=== PATIENT | male | born 2000 | race Caucasian/White ===

== ENCOUNTER 2020-07-05 11:09 | Outpatient (REF) | payer OTHER, SELFPAY ==
[2020-07-05 12:29] LABS: MANUAL DIFF FLAG NO
[2020-07-05 12:33] LABS: Basophils Percent Auto 0.5 % (0-2); Eosinophils Absolute Auto 0.1 X10*3/uL (0.0-0.4); Eosinophils Percent Auto 1.6 % (0-4); Hematocrit 48.8 % (42-52); Hemoglobin 16.3 g/dl (14.0-18.0); Imm Gran Abs Auto 0.02 X10*3/uL (0.00-0.03); Imm Gran Pct Auto 0.3 % (0.0-0.4); Lymphocytes Absolute Auto 2.2 X10*3/uL (1.2-4.9); Lymphocytes Percent Auto 30.6 % (20-40); Mean Corpuscular HGB Conc 33.4 g/dl (31.0-36.0); Mean Corpuscular Hemoglobin 27.7 pg (27.0-33.0); Mean Corpuscular Volume 82.9 fL (80-98); Mean Platelet Volume 9.8 fL (9.4-12.4); Monocytes Absolute Auto 0.6 X10*3/uL (0.1-1.2); Monocytes Percent Auto 7.7 % (2-11); Neutrophils Absolute Auto 4.3 X10*3/uL (2.0-8.3); Neutrophils Percent Auto 59.3 % (45-73); Platelet Count 275 X10*3/uL (160-400); Red Blood Count 5.89 X10*6/uL (4.60-5.80); Red Cell Distribution Width 12.6 % (11.0-16.0); White Blood Count 7.3 X10*3/uL (4.8-10.8)
[2020-07-05 12:52] LABS: Alanine Aminotransferase 72 U/L (0-40); Albumin Level 4.6 g/dL (3.5-5.0); Alkaline Phosphatase 107 U/L (39-117); Anion Gap 10 (12-20); Aspartate Amino Transferase 31 U/L (5-37); Bilirubin Direct 0.2 mg/dL (0.0-0.5); Bilirubin Total 0.6 mg/dL (0.0-1.0); Blood Urea Nitrogen 9 mg/dL (9-16); Calcium 9.8 mg/dL (8.4-10.2); Carbon Dioxide 30 mmol/L (22-29); Chloride 103 mmol/L (96-108); Cholesterol 199 mg/dL; Estimated Glomerular Filt Rate > 60; Glucose Random 89 mg/dL (60-115); HDL Cholesterol 37 mg/dL; LDL Cholesterol Calculated 117 mg/dl; Potassium 4.3 mmol/L (3.3-5.1); Sodium 139 mmol/L (135-145); Triglycerides 225 mg/dL
[2020-07-06 07:57] LABS: ~HepC Num1 0.04 S/CO (0.00-0.79); ~Hepatitis C Antibody Nonreactive (Nonreactive)
[2020-07-06 08:47] LABS: HBS Num1 0.41 mIU/mL (0-7.99); HBc Num1 0.12 S/CO (0.00-0.79); HBsAGNum1 0.18 S/CO (0.00-0.99); Hepatitis B Core Antibody Nonreactive (Nonreactive); Hepatitis B Surface Antigen Negative (Negative); ~Hepatitis B Surface Antibody NONREACTIVE (Nonreactive)
[2020-07-08 23:06] LABS: TS Negative Control Passed; TS Panel A 0; TS Panel B 0; TS Positive Control Passed; TSpotTB Negative (SeeBelow)
== END 2020-07-05 11:10 | disposition home or self-care (01) ==
LOC: HO.LAB 11:09
PROVIDERS: Visit Provider Physician Assistant Medical
DX: L40.0 Psoriasis vulgaris (principal)
CPT/HCPCS: 36415; 80053; 80061; 80076; 82248; 85025; 86481; 86704; 86705; 86706; 86803; 87340

== ENCOUNTER 2020-10-24 13:35 | Outpatient (REF) | payer OTHER, SELFPAY ==
[2020-10-24 14:36] LABS: MANUAL DIFF FLAG NO
[2020-10-24 14:39] LABS: Basophils Percent Auto 0.6 % (0-2); Eosinophils Absolute Auto 0.1 X10*3/uL (0.0-0.4); Eosinophils Percent Auto 1.8 % (0-4); Hematocrit 50.3 % (42-52); Imm Gran Abs Auto 0.02 X10*3/uL (0.00-0.03); Imm Gran Pct Auto 0.3 % (0.0-0.4); Lymphocytes Absolute Auto 2.8 X10*3/uL (1.2-4.9); Lymphocytes Percent Auto 41.1 % (20-40); Mean Corpuscular HGB Conc 33.8 g/dl (31.0-36.0); Mean Corpuscular Hemoglobin 28.2 pg (27.0-33.0); Mean Corpuscular Volume 83.6 fL (80-98); Mean Platelet Volume 10.6 fL (9.4-12.4); Monocytes Absolute Auto 0.5 X10*3/uL (0.1-1.2); Monocytes Percent Auto 6.7 % (2-11); Neutrophils Absolute Auto 3.4 X10*3/uL (2.0-8.3); Neutrophils Percent Auto 49.5 % (45-73); Platelet Count 271 X10*3/uL (160-400); Red Blood Count 6.02 X10*6/uL (4.60-5.80); Red Cell Distribution Width 12.8 % (11.0-16.0); White Blood Count 6.8 X10*3/uL (4.8-10.8)
[2020-10-24 15:09] LABS: Alanine Aminotransferase 63 U/L (0-40); Albumin Level 4.6 g/dL (3.5-5.0); Alkaline Phosphatase 94 U/L (39-117); Anion Gap 12 (12-20); Aspartate Amino Transferase 31 U/L (5-37); Bilirubin Total 1.1 mg/dL (0.0-1.0); Blood Urea Nitrogen 9 mg/dL (9-16); Calcium 10.1 mg/dL (8.4-10.2); Carbon Dioxide 28 mmol/L (22-29); Chloride 105 mmol/L (96-108); Estimated Glomerular Filt Rate > 60; Glucose Random 87 mg/dL (60-115); Potassium 4.7 mmol/L (3.3-5.1); Sodium 140 mmol/L (135-145); Total Protein 6.9 g/dL (6.5-8.0)
== END 2020-10-24 13:36 | disposition home or self-care (01) ==
LOC: HO.LAB 13:35
PROVIDERS: Visit Provider Physician Assistant Medical
DX: L40.0 Psoriasis vulgaris (principal); Z79.899 Other long term (current) drug therapy
CPT/HCPCS: 36415; 80053; 85025

== ENCOUNTER 2021-05-11 10:23 | Outpatient (REF) | payer OTHER, SELFPAY ==
[2021-05-11 10:42] LABS: MANUAL DIFF FLAG NO
[2021-05-11 11:07] LABS: Basophils Percent Auto 0.5 % (0-2); Eosinophils Absolute Auto 0.2 X10*3/uL (0.0-0.4); Eosinophils Percent Auto 2.1 % (0-4); Hematocrit 48.2 % (42.0-52.0); Hemoglobin 16.4 g/dl (14.0-18.0); Imm Gran Abs Auto 0.02 X10*3/uL (0.00-0.03); Imm Gran Pct Auto 0.3 % (0.0-0.4); Lymphocytes Absolute Auto 2.3 X10*3/uL (1.2-4.9); Lymphocytes Percent Auto 30.1 % (20-40); Mean Corpuscular Hemoglobin 28.6 pg (27.0-33.0); Mean Platelet Volume 9.9 fL (9.4-12.4); Monocytes Absolute Auto 0.6 X10*3/uL (0.1-1.2); Monocytes Percent Auto 7.4 % (2-11); Neutrophils Absolute Auto 4.5 x10*3/uL (2.0-8.3); Neutrophils Percent Auto 59.6 % (45-73); Platelet Count 247 X10*3/uL (160-400); Red Blood Count 5.74 X10*6/uL (4.60-5.80); Red Cell Distribution Width 12.5 % (11.0-16.0); White Blood Count 7.5 X10*3/uL (4.8-10.8)
[2021-05-11 11:26] LABS: Alanine Aminotransferase 50 U/L (0-40); Albumin Level 4.8 g/dL (3.5-5.0); Alkaline Phosphatase 81 U/L (39-117); Anion Gap 13 (12-20); Aspartate Amino Transferase 23 U/L (5-37); Bilirubin Total 0.7 mg/dL (0.0-1.0); Blood Urea Nitrogen 13 mg/dL (9-16); Calcium 10.1 mg/dL (8.4-10.2); Carbon Dioxide 27 mmol/L (22-29); Chloride 105 mmol/L (96-108); Estimated Glomerular Filt Rate > 60; Glucose Random 99 mg/dL (60-115); Potassium 4.6 mmol/L (3.3-5.1); Sodium 140 mmol/L (135-145); Total Protein 7.1 g/dL (6.5-8.0)
== END 2021-05-11 10:24 | disposition home or self-care (01) ==
LOC: HO.LAB 10:23
PROVIDERS: Visit Provider Physician Assistant Medical
DX: L40.0 Psoriasis vulgaris (principal); Z79.899 Other long term (current) drug therapy
CPT/HCPCS: 36415; 80053; 85025

== ENCOUNTER 2021-12-13 10:32 | Outpatient (REF) | payer OTHER, SELFPAY ==
[2021-12-13 10:53] LABS: MANUAL DIFF FLAG NO
[2021-12-13 11:47] LABS: Basophils Percent Auto 0.5 % (0-2); Eosinophils Absolute Auto 0.1 X10*3/uL (0.0-0.4); Eosinophils Percent Auto 1.6 % (0-4); Hemoglobin 16.7 g/dl (14.0-18.0); Imm Gran Abs Auto 0.03 X10*3/uL (0.00-0.03); Imm Gran Pct Auto 0.4 % (0.0-0.4); Lymphocytes Absolute Auto 2.3 X10*3/uL (1.2-4.9); Lymphocytes Percent Auto 30.5 % (20-40); Mean Corpuscular HGB Conc 33.4 g/dl (31.0-36.0); Mean Corpuscular Hemoglobin 27.6 pg (27.0-33.0); Mean Corpuscular Volume 82.5 fL (80.0-98.0); Monocytes Absolute Auto 0.4 X10*3/uL (0.1-1.2); Monocytes Percent Auto 5.6 % (2-11); Neutrophils Absolute Auto 4.6 x10*3/uL (2.0-8.3); Neutrophils Percent Auto 61.4 % (45-73); Platelet Count 270 X10*3/uL (160-400); Red Blood Count 6.06 X10*6/uL (4.60-5.80); Red Cell Distribution Width 12.8 % (11.0-16.0); White Blood Count 7.5 X10*3/uL (4.8-10.8)
[2021-12-13 12:21] LABS: Alanine Aminotransferase 43 U/L (0-40); Albumin Level 4.7 g/dL (3.5-5.0); Alkaline Phosphatase 83 U/L (39-117); Anion Gap 16 (12-20); Aspartate Amino Transferase 25 U/L (5-37); Bilirubin Direct 0.4 mg/dL (0.0-0.5); Blood Urea Nitrogen 17 mg/dL (9-16); Carbon Dioxide 27 mmol/L (22-29); Chloride 102 mmol/L (96-108); Cholesterol 180 mg/dL; Estimated Glomerular Filt Rate > 60; Glucose Random 123 mg/dL (60-115); HDL Cholesterol 43 mg/dL; LDL Cholesterol Calculated 121 mg/dl; Potassium 4.6 mmol/L (3.3-5.1); Sodium 140 mmol/L (135-145); Total Protein 7.1 g/dL (6.5-8.0); Triglycerides 80 mg/dL
[2021-12-15 16:16] LABS: LDL Cholesterol Direct 122 mg/dL (<100)
[2021-12-16 21:32] LABS: TS Negative Control Passed; TS Panel A 0; TS Panel B 0; TS Positive Control Passed; TSpotTB Negative (Negative)
== END 2021-12-13 10:33 | disposition home or self-care (01) ==
LOC: HO.LAB 10:32
PROVIDERS: Visit Provider Physician Assistant Medical
DX: Z11.1 Encounter for screening for respiratory tuberculosis (principal); L40.0 Psoriasis vulgaris; Z79.899 Other long term (current) drug therapy
CPT/HCPCS: 36415; 80048; 80061; 80076; 83721; 85025; 86481

== ENCOUNTER 2022-08-18 10:13 | Emergency (ER) | payer OTHER, SELFPAY ==
[2022-08-18 10:22] VITALS: BP 122/64; PULSE 72; RESP 16; TEMP 36.8; O2SAT 96; BMI 39.3
--- NOTE | 2022-08-18 10:42 | ED.GENADULT ---
HPI - General Adult General Chief complaint: Back Pain/Injury Stated complaint: Back inj Time Seen by Provider: 08/18/22 10:42 Source: patient Mode of arrival: ambulatory Limitations: no limitations History of Present Illness HPI narrative: Patient is a 22 year old assigned male at with a history of chronic back pain presenting to the emergency department today with back pain. Patient states that he has a chronic compression deformity in his back and he has never had treatment for it. Patient states that lately it has hurt more because he does a lot of lifting at work. Patient denies any dizziness, lightheadedness, abdominal pain, nausea, vomiting, fever, chills, blurry vision, double vision, loss of vision, chest pain, difficulty breathing, shortness of breath, night sweats, pain with urination, increased urinary frequency, increased urinary urgency, blood in his urine or stool, syncope or a near syncopal episode, recent trauma or falls, bowel incontinence, bladder incontinence, bowel retention, bladder retention, or any other complaints at this time. Onset (ago): day(s) Location: back Radiation: non-radiation Severity: mild Severity scale (1-10): 3 Quality: dull Pain Consistency: constant Relieving factors: none Exacerbating factors: movement Associated symptoms: denies other symptoms Treatments prior to arrival: none Related Data Previous Rx's Medication Instructions Recorded cyclobenzaprine 5 mg tablet 5 mg PO TID PRN muscle spasm 7 08/18/22 days #21 tabs naproxen 500 mg tablet 500 mg PO BID 7 days #14 tabs 08/18/22 prednisone 20 mg tablet 20 mg PO DAILY 7 days #7 tabs 08/18/22 Allergies Allergy/AdvReac Type Severity Reaction Status Date / Time No Known Allergies Allergy Verified 08/18/22 10:33 Review of Systems Constitutional: Constitutional: Reports no additional constitutional complaints, Denies chills, Denies fever(s) and Denies night sweats Eyes: Eyes: Reports no additional eye complaints, Denies blurry vision, Denies change in vision, Denies diplopia, Denies eye discharge, Denies loss of vision and Denies eye pain ENT: Denies dizziness Cardiovascular: Cardiovascular: Reports no additional cardiovascular complaints, Denies chest pain, Denies lightheadedness, Denies Loss of Consciousness and Denies dyspnea Respiratory: Respiratory: Reports no additional respiratory complaints and Denies dyspnea Gastrointestinal: Gastrointestinal: Reports no additional gastrointestinal complaints, Denies abdominal pain, Denies melena, Denies hematochezia, Denies change in bowel habits and Denies change in stool character Genitourinary: Genitourinary: Reports no additional male genitourinary complaints, Denies hematuria, Denies oliguria, Denies difficulty urinating, Denies dysuria, Denies urinary frequency, Denies urinary hesitancy, Denies urinary incontinence and Denies urinary urgency Musculoskeletal: Musculoskeletal: Reports no additional musculoskeletal complaints, Reports back pain, Denies numbness and Denies tingling Neurologic: Denies dizziness, Denies loss of vision, Denies numbness and Denies tingling Psychiatric: Psychiatric: Reports no additional psychiatric complaints Endocrine: Endocrine: Reports no additional endocrine complaints Hematologic/Lymphatic: Hematologic/Lymphatic: Reports no additional hematologic/lymphatic complaints Allergic/Immunologic: Allergic/Immunologic: Reports no additional allergic/immunologic complaints PMFSH Past Medical History Attestation statement: The following information was validated with the patient. Source: old records reviewed and nursing notes reviewed Physical Exam ED Vital Signs: Vital Signs - 24 hr 08/18/22 10:22 Temperature 98.2 F Pulse Rate 72 Respiratory Rate 16 Blood Pressure 122/64 Pulse Oximetry 96 Oxygen Delivery Method Room Air BMI result Body Mass Index 39.3 Const General: cooperative, no acute distress, alert and awake Nutritional Appearance: well nourished Orientation/consciousness: patient oriented x3 Limitations: no limitations HENMT Head: Yes normal to inspection and Yes atraumatic Ears: hearing grossly normal bilaterally and external ears normal General nose exam: Normal external nose present, no nasal discharge noted and no epistaxis Face and sinus: Yes normal facial exam, No abrasion and No laceration Mouth: Normal oral and palatal mucosa present, no drooling and no muffled voice Eyes General: appearance normal, both eyes and all related structures Periorbital: periorbital findings normal Eyelids: Yes eyelids normal Conjunctivae: conjunctivae normal Pupils: Equal, round and reactive pupils present EOM: EOMs intact bilaterally Neck Neck: Yes normal visual inspection, Yes full ROM and Yes no lymphadenopathy Chest Chest palpation & inspection: normal inspection of the chest Resp Effort & Inspection: normal respiratory effort and able to speak in complete sentences GI Inspection: Yes normal to inspection General: Yes no CVA tenderness Back/Spine/Pelvis Back: no CVA tenderness Cervical Spine: normal cervical lordosis Thoracic/Lumbar Spine: thoracic and lumbar spine normal to inspection Pelvis: no pain with anterior-posterior compression Neuro General: patient oriented x3 and moves all extremities Cranial nerves: Yes Equal, round and reactive pupils present Cognition (Neuro): normal cognition Motor exam (neuro): 5/5 motor strength present throughout Sensory Exam: Normal double simultaneous stimulation for sensation Coordination: [id number] test normal Extrem General: Yes normal to inspection, Yes full ROM and Yes capillary refill normal Psych Appearance: grossly normal Mental Status: mental status grossly normal Affect: normal affect Attitude: cooperative Thought process: Normal thought process present Thought content: Normal thought content present Insight: Good insight present (Psych) Medical Decision Making Medical Decision Making MDM Narrative: Patient is a 22 year old assigned male at with a history of chronic back pain presenting to the emergency department today with persistent back pain. Patient's physical exam was unremarkable. I explained my physical exam findings to the patient. I answered all questions asked by the patient. Patient received PO Prednisone, IM Toradol, and PO Flexeril which he stated helped his symptoms significantly. I stressed the importance of the patient taking his medication as prescribed. 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 I stressed the importance of the patient returning to the emergency department immediately if his symptoms were to worsen or if he were to develop any dizziness, shortness of breath, difficulty breathing, chest pain, blurry vision, loss of vision, nausea, vomiting, abdominal pain, fever, chills, back pain, or any other complaints. Patient verbalized agreement and understanding with this treatment plan and discharge. Differential Diagnosis Differential Diagnoses: The differential diagnosis associated with the presentation includes back pain chronic back pain chronic compression deformity of the spine mechanical back pain Prescription Management I considered prescription management with: Pain Medication (patient was discharged on naproxen) Discharge Plan Discharge Clinical Impression: Back pain Patient Disposition: Home, Self-Care Instructions: Back Pain (ED) Additional Instructions: Follow up with your primary care provider and a desktop publishing specialist. Return to the emergency department immediately if your symptoms worsen or if you develop any dizziness, shortness of breath, difficulty breathing, chest pain, blurry vision, loss of vision, nausea, vomiting, abdominal pain, fever, chills, back pain, or any other complaints. Prescriptions: New cyclobenzaprine 5 mg tablet 5 mg PO TID PRN (Reason: muscle spasm) 7 Days Qty: 21 0RF prednisone 20 mg tablet 20 mg PO DAILY 7 Days Qty: 7 0RF naproxen 500 mg tablet 500 mg PO BID 7 Days Qty: 14 0RF Referrals: [facility] [Provider Group] (Call to establish and follow up with a primary care provider. If you already have a primary care provider, please follow up with them.) [facility] [place] [Provider Group] (Call to establish and follow up with a primary care provider. If you already have a primary care provider, please follow up with them.) [facility] [Provider Group] (Call to establish and follow up with a primary care provider. If you already have a primary care provider, please follow up with them.) [facility] [Provider Group] (Call to establish and follow up with a desktop publishing specialist. ) Stand Alone Forms: Work/School Release Print Language: Qatari
[2022-08-18] MEDS: Cyclobenzaprine HCl 5 MG TABLET PO (11:36)
[2022-08-18] MEDS: Ketorolac Tromethamine 15 MG/ML VIAL IM (11:36)
[2022-08-18] MEDS: predniSONE 20 MG TABLET PO (11:36)
== END 2022-08-18 12:40 | disposition home or self-care (01) ==
PROVIDERS: Emergency Provider Emergency Medicine
DX: M54.9 Dorsalgia, unspecified (principal)
CPT/HCPCS: 96372; 99282; 99284; J1885

== ENCOUNTER 2022-12-09 20:44 | Inpatient (IN) | payer OTHER, SELFPAY ==
[2022-12-09 20:49] VITALS: BMI 31.9
[2022-12-09 20:59] VITALS: BP 139/89; PULSE 76; RESP 18; TEMP 36.5; O2SAT 96
--- NOTE | 2022-12-09 20:59 | ED.PSYCH ---
HPI - Psych General Chief Complaint: Psychiatric Symptoms Stated Complaint: SI/Depression Time Seen by Provider: 12/09/22 20:58 Source: patient and old records reviewed Mode of arrival: ambulatory Limitations: no limitations History of Present Illness HPI Narrative: 22 yo male with no sig PMH here with increasing depression and SI with self harm ideation. He is very calm and polite. He has never been inpatient before or to our ED for this before. He was brought in by family. MD complaint: suicidal ideation and feels depressed Onset (ago): week(s) Duration: getting worse History of same: Yes Relieving factors: none Exacerbating factors: other Context: significant life stressor Associated psychiatric symptoms: depression and suicidal ideation Associated symptoms: denies other symptoms Treatments prior to arrival: none If self harm: admits thoughts of self harm Related Data Home Medications Medication Instructions Recorded Confirmed No Known Home Meds 12/09/22 12/09/22 Allergies Allergy/AdvReac Type Severity Reaction Status Date / Time No Known Allergies Allergy Verified 08/18/22 10:33 Review of Systems Review of Systems: Constitutional : No Fever, No Chills Cardiovascular : No Chest Pain, No SOB Respiratory : No Cough, No Sputum, No Dyspnea Gastrointestinal : No Nausea, No Vomiting, No Diarrhea, No Hematochezia, No Melena Genitourinary : No Dysuria, No Urinary Frequency, No Hematuria Musculoskeletal : No Myalgias Skin : No Skin Lesions, No rash Neuro : No Weakness, No Numbness, No Paresthesias, No Dizziness, No Headache Psych : positive Anxiety, positive Depression, positive SI no HI All other systems reviewed and are negative [facility] Past Medical History Attestation statement: The following information was validated with the patient. Medical History No pertinent past medical history Social History Social History (Updated 12/09/22 @ 21:54 by Brianne Garces DO) Patient Tobacco Use Status: Never used Tobacco Physical Exam Vital Signs: Vital Signs: Last Vital Signs Temp 97.7 F 12/09/22 20:59 Pulse 76 12/09/22 20:59 Resp 18 12/09/22 20:59 BP 139/89 12/09/22 20:59 Pulse Ox 96 12/09/22 20:59 O2 Del Method Room Air 12/09/22 20:59 BMI result Body Mass Index 31.9 Appearance: Alert. Oriented X3. No acute distress. Eyes: Pupils equal, round and reactive to light. ENT: Pharynx normal. Neck: Normal inspection. Neck supple. CVS: Normal heart rate and rhythm. Pulses normal. Respiratory: No respiratory distress. Breath sounds normal. Abdomen: Soft and nontender. Skin: Skin warm and dry. Normal skin color. Normal skin turgor. Extremities: No lower extremity edema. No calf ttp Neuro: Oriented X 3. No motor deficit. No sensory deficit. CN2-12 intact Course Course Course Narrative: Physician observation started at 956pm. Patient placed in physician observation because the patient needed more time for CARE team to assess the need for psych admission. At the time observation was started the patient's vitals were stable, patient is alert and oriented Neuro: nonfocal, CV RRR, Lungs clear Medical Decision Making Medical Decision Making [facility] Narrative: 22 yo male here with depression and SI - will need med clearance and CARE team work up he has no medical complaints. Dispo per CARE team input Differential Diagnosis Differential Diagnoses: The differential diagnosis associated with the presentation includes depression, SI Admission/Observation Consideration of admission/observation: Escalation of care including admission/observation considered observe until seen by CARE team Consult Healthcare Provider Management of the patient was discussed with: Behavioral Health Provider Lab Data [facility] Lab Attestation statement: I reviewed the patient's lab results. Independent Historian Clinical information obtained from an independent historian. History obtained from or confirmed by: Other Discharge Plan Discharge Clinical Impression: Suicidal ideation Patient Disposition: Still a Patient Prescriptions: No Action No Known Home Meds Interventions: [place]-Suicide Risk Severity Scale Last Done: 12/09/22 21:00
[2022-12-09 22:06] LABS: MANUAL DIFF FLAG NO
[2022-12-09 22:14] LABS: Appearance Urine Clear; Color Urine Yellow; Glucose Urine UA Negative (Negative); Leukocyte Esterase Urine Negative (Negative); Nitrite Urine Negative (Negative); PH 6.5 (5.0-9.0); Urine Blood Negative (Negative); Urine Ketones Negative (Negative); Urine Protein Negative (Neg-Trace)
[2022-12-09 22:20] LABS: Basophils Absolute Auto 0.1 X10*3/uL (0.0-0.2); Basophils Percent Auto 0.4 % (0-2); Eosinophils Absolute Auto 0.1 X10*3/uL (0.0-0.4); Eosinophils Percent Auto 0.7 % (0-4); Hematocrit 47.5 % (42.0-52.0); Hemoglobin 16.4 g/dl (14.0-18.0); Imm Gran Abs Auto 0.03 X10*3/uL (0.00-0.03); Imm Gran Pct Auto 0.3 % (0.0-0.4); Lymphocytes Absolute Auto 2.8 X10*3/uL (1.2-4.9); Mean Corpuscular HGB Conc 34.5 g/dl (31.0-36.0); Mean Corpuscular Hemoglobin 28.8 pg (27.0-33.0); Mean Corpuscular Volume 83.5 fL (80.0-98.0); Mean Platelet Volume 10.1 fL (9.4-12.4); Monocytes Absolute Auto 0.6 X10*3/uL (0.1-1.2); Monocytes Percent Auto 5.5 % (2-11); Neutrophils Absolute Auto 7.9 x10*3/uL (2.0-8.3); Neutrophils Percent Auto 69.1 % (45-73); Platelet Count 221 X10*3/uL (160-400); Red Blood Count 5.69 X10*6/uL (4.60-5.80); Red Cell Distribution Width 12.3 % (11.0-16.0); White Blood Count 11.5 X10*3/uL (4.8-10.8)
[2022-12-09 22:22] LABS: Amphetamine Screen Urine Not Detected (Not Detect); Barbiturates, Urine Not Detected (Not Detect); Benzodiazepines Screen Urine Not Detected (Not Detect); COVID-19 Test Negative (Negative); Cannabinoid Screen Urine Not Detected (Not Detect); Cocaine Screen Urine Not Detected (Not Detect); Fentanyl, urine Not Detected (Not Detect); IDNOW Serial# 08D9AD1C; Opiate Screen Urine Not Detected (Not Detect); Phencyclidine Screen Urine Not Detected (Not Detect)
[2022-12-09 22:35] LABS: Acetaminophen LAB < 17 mcg/mL (<30); Salicylate < 5.0 mg/dL (15-30)
[2022-12-09 22:36] LABS: Alanine Aminotransferase 38 U/L (0-40); Albumin Level 4.8 g/dL (3.5-5.0); Alkaline Phosphatase 81 U/L (39-117); Anion Gap 16 (12-20); Aspartate Amino Transferase 27 U/L (5-37); Bilirubin Total 1.1 mg/dL (0.0-1.0); Blood Urea Nitrogen 12 mg/dL (9-16); Calcium 10.1 mg/dL (8.4-10.2); Carbon Dioxide 27 mmol/L (22-29); Chloride 105 mmol/L (96-108); Creatinine Clr Calc Pharmacy 146.4; Estimated Glomerular Filt Rate > 60; Ethanol < 10 mg/dL; Glucose Random 92 mg/dL (60-115); Magnesium 2.1 mg/dL (1.6-2.6); Sodium 144 mmol/L (135-145); Total Protein 7.4 g/dL (6.5-8.0)
[2022-12-10 06:35] VITALS: BP 124/64; PULSE 66; RESP 16; TEMP 36.3; O2SAT 98
--- NOTE | 2022-12-10 07:20 | PC.NURSE ---
patient appears to remain asleep at present respirations are even and unlabored patient appears in no distress
[2022-12-10 08:34] VITALS: BP 109/63; PULSE 69; RESP 17; TEMP 36.2; O2SAT 96
[2022-12-10 16:30] VITALS: BP 135/73; PULSE 68; TEMP 36.2
[2022-12-10] MEDS: traZODone HCL 50 MG TABLET PO (22:39)
--- NOTE | 2022-12-11 00:31 | PC.ADMIT ---
A white, single, Lao-speaking male aged 22 years [facility] 1340 as a CV following [facility]. Pt is not known to [facility] and reports that this is his first IPLOC. Pt presented to [facility] 12/09/22 secondary to increased depression and suicidal ideation. Pt had group-texted his sisters and mother about needing professional help and was misunderstood .Pt became angry with family, making statements such as you really don't care about me and it is too late to care now . Pt also stated to family, well if this is my last night, at least I had sex and a steak . Pt refused to tell his family where he was located. Pt denies current SI/HI and says he can seek help from staff. Pt denies AVH. Pt rates anxiety 6/10, depression 7/10 and denies pain. Pt reports poor sleep with frequent awakening about every two hours.Pt says that 6/10 anxiety is bearable but is much worse during a panic attack. Pt said symptoms have been present for two years. Pt says he lost several relatives within three months. Pt says he is open to meds for anxiety. Pt reports he used to be on Concerta for ADHD and thinks it would be helpful if this medication were restarted. Pt currently has no providers and needs PCP, therapist and medication provider. Pt has no medical issues. UTOX was negative, but pt reports using marijuana about two times weekly. [id number] done; admission orders obtained, initial treatment plan done and safety tool done , but need to be signed.
[2022-12-11 08:43] LABS: Estimated Average Glucose 94 mg/dL; Hemoglobin A1c % 4.9 % (<6.0)
[2022-12-11 08:47] VITALS: BP 122/58; PULSE 64; RESP 16; TEMP 36.6; O2SAT 97
[2022-12-11 09:04] LABS: Alanine Aminotransferase 33 U/L (0-40); Albumin Level 4.5 g/dL (3.5-5.0); Alkaline Phosphatase 76 U/L (39-117); Anion Gap 13 (12-20); Aspartate Amino Transferase 23 U/L (5-37); Bilirubin Total 0.7 mg/dL (0.0-1.0); Blood Urea Nitrogen 13 mg/dL (9-16); Carbon Dioxide 26 mmol/L (22-29); Chloride 105 mmol/L (96-108); Cholesterol 185 mg/dL (<200); Creatinine Clr Calc Pharmacy 166.6; Estimated Glomerular Filt Rate > 60; Glucose Fasting 97 mg/dL (60-99); HDL Cholesterol 40 mg/dL (>40); LDL Cholesterol Calculated 128 mg/dL (<100); Potassium 3.8 mmol/L (3.3-5.1); Sodium 140 mmol/L (135-145); Total Protein 7.1 g/dL (6.5-8.0); Triglycerides 87 mg/dL (<150)
[2022-12-11 09:16] LABS: Vitamin B12 561 pg/mL (200-900)
[2022-12-11 11:47] VITALS: BMI 30.3
--- NOTE | 2022-12-11 17:55 | P.HPPS_ITS ---
HPI Date of Service: 12/11/22 Chief Complaint: SI Sources of Information: patient interviewed, chart reviewed and crisis/core team assessment reviewed HPI Subjective Notes: [place] Warning and Conditional Voluntary Medical Problems Affecting Mental Status: No Narrative: 22 yo male, presents with increase in depression, anxiety, SI. Reports this is his first intervention, with sx occurring for years before this presentation. Pt texted family, telling them he needed help. Although he did not feel understood, they were able to help him present for evaluation. Pt reports main sx are anxiety, depression. He describes rationale as deaths in his family (two uncles who were like fathers to him and an aunt who was like a second mother), failed friendships and relationships (retried 2 relationships which did not work out, believes symptoms impacted his thought process and how I handle things ) which he believes symptoms have something to do with his inability to maintain relationships, finances (lives with mom in housing-had to pay housing a sum of money when his salary was raised) and feeling unable to bring his life together. Past Psychiatric History: IP: Denies OP: Denies SI: Hx of SI, no sibs, no SA Trials: None Reports consistent lability of mood, up, down, never even or level Medical Evaluation Reviewed: Yes [facility] Medical History (Updated 12/11/22 @ 18:48 by Constance Burger APRN) Major depression No pertinent past medical history Narrative: Disc compressions since adolesence Chronic back pain Psoriasis Family History: Affirms-family hx, mother with bipolar traits, sisters with anxiety. Social History: Born and raised in [facility]. 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 Enjoys working in [employer] History: Denies Trauma History: Loss Diagnostics Vital Signs (24Hr): Vital Signs - 24 hr 12/11/22 08:47 Temperature 97.9 F Pulse Rate 64 Respiratory Rate 16 Blood Pressure 122/58 L Pulse Oximetry 97 Oxygen Delivery Method Room Air BMI result Body Mass Index 30.3 Labs 12/09/22 22:00 12/11/22 08:21 Labs: Laboratory Results - last 48 hr 12/09/22 12/09/22 12/09/22 22:00 22:01 22:02 WBC 11.5 H RBC 5.69 Hgb 16.4 Hct 47.5 MCV 83.5 MCH 28.8 MCHC 34.5 RDW 12.3 Plt Count 221 MPV 10.1 Immature Gran % (Auto) 0.3 Neut % (Auto) 69.1 Lymph % (Auto) 24.0 [place] % (Auto) 5.5 Eos % (Auto) 0.7 Baso % (Auto) 0.4 Lymph # (Auto) 2.8 [place] # (Auto) 0.6 Eos # (Auto) 0.1 Baso # (Auto) 0.1 Abs Immat Gran (auto) 0.03 Absolute Neuts (auto) 7.9 Absolute Nucleated RBC 0.000 Nucleated RBC % (auto) 0.0 Sodium 144 Potassium 4.0 Chloride 105 Carbon Dioxide 27 Anion Gap 16 BUN 12 Creatinine 0.99 Estim Creat Clear Calc 146.4 Estimated GFR > 60 Random Glucose 92 Fasting Glucose Estimat Average Glucose Hemoglobin A1c % Calcium 10.1 Magnesium 2.1 Total Bilirubin 1.1 H AST 27 ALT 38 Alkaline Phosphatase 81 Total Protein 7.4 Albumin 4.8 Triglycerides Cholesterol LDL Cholesterol, Calc HDL Cholesterol Vitamin B12 TSH Urine Color Yellow Urine Appearance Clear Urine pH 6.5 Ur Specific [place] 1.020 Urine Protein Negative Urine Glucose (UA) Negative Urine Ketones Negative Urine Blood Negative Urine Nitrite Negative Ur Leukocyte Esterase Negative Salicylates < 5.0 L Urine Opiates Screen Not Detected Urine Fentanyl Screen Not Detected Acetaminophen < 17 Ur Barbiturates Screen Not Detected Ur Phencyclidine Scrn Not Detected Ur Amphetamines Screen Not Detected U Benzodiazepines Scrn Not Detected Urine Cocaine Screen Not Detected U Marijuana (THC) Screen Not Detected Ethyl Alcohol < 10 COVID-19 (CUAUHTEMOC) Negative COVID-19 Clin Com See Note 12/11/22 08:21 WBC RBC Hgb Hct MCV MCH MCHC RDW Plt Count MPV Immature Gran % (Auto) Neut % (Auto) Lymph % (Auto) [place] % (Auto) Eos % (Auto) Baso % (Auto) Lymph # (Auto) [place] # (Auto) Eos # (Auto) Baso # (Auto) Abs Immat Gran (auto) Absolute Neuts (auto) Absolute Nucleated RBC Nucleated RBC % (auto) Sodium 140 Potassium 3.8 Chloride 105 Carbon Dioxide 26 Anion Gap 13 BUN 13 Creatinine 0.87 Estim Creat Clear Calc 166.6 Estimated GFR > 60 Random Glucose Fasting Glucose 97 Estimat Average Glucose 94 Hemoglobin A1c % 4.9 Calcium 10.0 Magnesium Total Bilirubin 0.7 AST 23 ALT 33 Alkaline Phosphatase 76 Total Protein 7.1 Albumin 4.5 Triglycerides 87 Cholesterol 185 LDL Cholesterol, Calc 128 H HDL Cholesterol 40 L Vitamin B12 561 TSH 0.80 Urine Color Urine Appearance Urine pH Ur Specific [place] Urine Protein Urine Glucose (UA) Urine Ketones Urine Blood Urine Nitrite Ur Leukocyte Esterase Salicylates Urine Opiates Screen Urine Fentanyl Screen Acetaminophen Ur Barbiturates Screen Ur Phencyclidine Scrn Ur Amphetamines Screen U Benzodiazepines Scrn Urine Cocaine Screen U Marijuana (THC) Screen Ethyl Alcohol COVID-19 (CUAUHTEMOC) COVID-19 Clin Com Meds/Allergies Meds Home Medications Medication Instructions Recorded Confirmed Type No Known Home Meds 12/09/22 12/09/22 History Allergies Allergies Allergy/AdvReac Type Severity Reaction Status Date / Time No Known Allergies Allergy Verified 08/18/22 10:33 Mental Status Exam Mental Status Exam Patient Appearance: Appropriate Patient Orientation: Person, Place, Time and Situation Level of Consciousness: Alert Patient Behavior: Appropriate, Talkative and Good Eye Contact Mood Description: Constricted and Depressed Affect Description: Constricted Patient Cognition Impaired: No Ability to Follow Directions: Good Speech Pattern: Spontaneous Speech Memory Description: Intact Hallucinations: None Delusions: Not Present Thought Process: Rumination Thought Content: positive for Circumstantial, positive for Goal Oriented, positive for Perseveration, positive for Logical and positive for Suicidal Ideation Depressive Symptoms: Loss of Int. in Activity, Hopelessness, Unhappiness, Thoughts of /Suicide, Low Self Esteem and Difficulty Concentrating Judgement: Fair Assessment & Plan Assessment & Plan (1) Suicidal ideation: Status: Acute Code(s): R45.851 - Suicidal ideations (2) Major depression: Status: Acute Code(s): F32.9 - Major depressive disorder, single episode, unspecified Plan 22 yo male, presents with reports of increasing depression and SI. Pt asked family for help in directing him for treatment which they were able to do. Reports no history of treatment, but history of symptoms for a few years. Denies addiction history. Family history positive for depression, anxiety and possible bipolar disorder. Differential of major depression vs bipolar II. No hx of overt eusebio however pt reports no history of any mood stability, just significant highs and lows. Plan: CV 15 minute checks Diagnostics appear intact EKG Lamictal 25 mg HS Lexapro 10 mg a.m. Patient educated on: therapeutic strategies Informed Consent: understands Reason for continued inpatient stay Substantial Risk for: rapid decompensation Statement Statement: I have reviewed the history and physical and performed a pertinent examination on my patient. No changes have occurred unless specified. If the History and Physical was not performed prior to admission, the Hospitalist's service will be consulted for completing the admission physical. Time Spent With Patient Time: Total time managing care of this patient today ____ minutes.
[2022-12-11 18:40] VITALS: BP 125/63; PULSE 74; RESP 16; TEMP 36.8; O2SAT 96
[2022-12-11] MEDS: lamoTRIgine 25 MG TABLET PO (20:18)
[2022-12-11] MEDS: Acetaminophen 325 MG TABLET 650 MG PO (20:50)
[2022-12-12 08:10] VITALS: BP 127/77; PULSE 70; RESP 18; TEMP 36.6; O2SAT 96
[2022-12-12] MEDS: Escitalopram Oxalate 10 MG TABLET PO (08:39)
--- NOTE | 2022-12-12 09:00 | ECG_ITS ---
Test Reason : QTC CHECK Blood Pressure : / mmHG Vent. Rate : 073 BPM Atrial Rate : 073 BPM P-R Int : 114 ms QRS Dur : 094 ms QT Int : 374 ms P-R-T Axes : 064 006 020 degrees QTc Int : 412 ms Normal sinus rhythm Normal ECG No previous ECGs available Referred By: Constance Burger Electronically Signed By:LIN KING MD
--- NOTE | 2022-12-12 15:45 | P.PNPSI_ITS ---
Subjective Subjective Date of Service: 12/12/22 Reason For Visit: SI Subjective Notes: Conditional Voluntary Interim History: Pleased with medication effects thus far. Review of Lexapro and Lamictal Discussed discharge planning Denies SI, HI. Feels on the right track Engaged in milieu. Medication Compliance: Yes Side effects from medications: No Attending Groups: Yes Review of Systems Acute medical concerns: No Mental Status Exam Mental Status Exam Patient Appearance: Appropriate Patient Orientation: Person, Place, Time and Situation Level of Consciousness: Alert Patient Behavior: Appropriate, Talkative and Good Eye Contact Mood Description: Constricted and Depressed Affect Description: Constricted Patient Cognition Impaired: No Ability to Follow Directions: Good Speech Pattern: Spontaneous Speech Memory Description: Intact Hallucinations: None Delusions: Not Present Thought Process: Rumination Thought Content: positive for Circumstantial, positive for Goal Oriented, positive for Perseveration, positive for Logical and positive for Suicidal Ideation (denies) Depressive Symptoms: Loss of Int. in Activity, Hopelessness, Unhappiness, Thoughts of /Suicide (denies), Low Self Esteem and Difficulty Concentrating Judgement: Fair Diagnostics Vital Signs (24Hr): Vital Signs - 24 hr 12/11/22 18:40 12/12/22 08:10 Temperature 98.2 F 97.9 F Pulse Rate 74 70 Respiratory Rate 16 18 Blood Pressure 125/63 127/77 Pulse Oximetry 96 96 Oxygen Delivery Method Room Air Room Air BMI result Body Mass Index 30.3 Labs 12/09/22 22:00 12/11/22 08:21 Labs: Laboratory Results - last 48 hr 12/11/22 08:21 Sodium 140 Potassium 3.8 Chloride 105 Carbon Dioxide 26 Anion Gap 13 BUN 13 Creatinine 0.87 Estim Creat Clear Calc 166.6 Estimated GFR > 60 Fasting Glucose 97 Estimat Average Glucose 94 Hemoglobin A1c % 4.9 Calcium 10.0 Total Bilirubin 0.7 AST 23 ALT 33 Alkaline Phosphatase 76 Total Protein 7.1 Albumin 4.5 Triglycerides 87 Cholesterol 185 LDL Cholesterol, Calc 128 H HDL Cholesterol 40 L Vitamin B12 561 TSH 0.80 Medications Medications Current Medications Acetaminophen (Acetaminophen 325 Mg Tablet) 650 mg PO Q6H PRN PRN Reason: Headache/Pain Mild Scale (1-3) Last Admin: 12/11/22 20:50 Dose: 650 mg Al Hydroxide/Mg Hydroxide (Magnesium Hydrox/Alum Hydrox 30 Ml Oral.Susp) 30 ml PO Q6H PRN PRN Reason: Heartburn/Nausea Escitalopram Oxalate (Escitalopram Oxalate 10 Mg Tablet) 10 mg PO DAILY [facility] Last Admin: 12/12/22 08:39 Dose: 10 mg Hydroxyzine HCl (Hydroxyzine Hcl 25 Mg Tablet) 25 mg PO Q6H PRN PRN Reason: Anxiety Lamotrigine (Lamotrigine 25 Mg Tablet) 25 mg PO BEDTIME YOLANDA Last Admin: 12/11/22 20:18 Dose: 25 mg Magnesium Hydroxide (Milk Of Magnesia 30 Ml Oral.Susp) 30 ml PO DAILY PRN PRN Reason: Constipation Trazodone HCl (Trazodone Hcl 50 Mg Tablet) 50 mg PO BEDTIME MRX1 PRN PRN Reason: Insomnia Last Admin: 12/10/22 22:39 Dose: 50 mg Allergies Allergies Allergy/AdvReac Type Severity Reaction Status Date / Time No Known Allergies Allergy Verified 08/18/22 10:33 Assessment & Plan Assessment & Plan (1) Suicidal ideation: Status: Acute Code(s): R45.851 - Suicidal ideations (2) Major depression: Status: Acute Code(s): F32.9 - Major depressive disorder, single episode, unspecified Plan 22 yo male, presents with reports of increasing depression and SI. Pt asked family for help in directing him for treatment which they were able to do. Reports no history of treatment, but history of symptoms for a few years. Denies addiction history. Family history positive for depression, anxiety and possible bipolar disorder. Differential of major depression vs bipolar II. No hx of overt eusebio however pt reports no history of any mood stability, just significant highs and lows. Plan: CV 15 minute checks Diagnostics appear intact EKG Lamictal 25 mg HS Lexapro 10 mg a.m. 12/12/22- Continue current regime Patient educated on: medication risk/benefits and therapeutic strategies Informed Consent: understands Reason for continued inpatient stay Substantial Risk for: rapid decompensation Time Spent With Patient Time: Total time managing care of this patient today ____ minutes.
[2022-12-12 18:00] VITALS: BP 156/77; PULSE 77; TEMP 36.1; O2SAT 97
[2022-12-12] MEDS: lamoTRIgine 25 MG TABLET PO (20:36)
[2022-12-13] MEDS: Escitalopram Oxalate 10 MG TABLET PO (08:35)
[2022-12-13 09:38] VITALS: BP 122/57; PULSE 72; RESP 16; TEMP 37.1; O2SAT 97
--- NOTE | 2022-12-13 10:02 | HO.PSYCHPN ---
Subjective Subjective Date of Service: 12/13/22 Reason For Visit: SI Interim History: Patient seen. He is doing well. He is pleased with medication effects thus far. Continues on Lexapro and Lamictal. Denies SI, HI. Feels on the right track Engaged in milieu. Review of Systems Review of Systems Constitutional : No Fever, No Chills Cardiovascular : No Chest Pain, No SOB Respiratory : No Cough, No Sputum, No Dyspnea Gastrointestinal : No Nausea, No Vomiting, No Diarrhea, No Hematochezia, No Melena Genitourinary : No Dysuria, No Urinary Frequency, No Hematuria Musculoskeletal : No Myalgias Skin : No Skin Lesions, No rash Neuro : No Weakness, No Numbness, No Paresthesias, No Dizziness, No Headache Psych : positive Anxiety, positive Depression, positive SI no HI All other systems reviewed and are negative Musculoskeletal: Reports back pain Reports behavioral changes Psychiatric: Reports anxiety, Reports behavioral changes, Reports depression, Reports hopelessness, Reports irritability, Reports anhedonia, Reports mood swings and Reports suicidal ideation Mental Status Exam Mental Status Exam Patient Appearance: Appropriate Patient Orientation: Person, Place, Time and Situation Level of Consciousness: Alert Patient Behavior: Appropriate, Talkative and Good Eye Contact Mood Description: Constricted and Depressed Affect Description: Constricted Patient Cognition Impaired: No Ability to Follow Directions: Good Speech Pattern: Spontaneous Speech Memory Description: Intact Diagnostics Vital Signs (24Hr): Vital Signs - 24 hr 12/12/22 18:00 Temperature 97 F Pulse Rate 77 Blood Pressure 156/77 H Pulse Oximetry 97 Oxygen Delivery Method Room Air BMI result Body Mass Index 30.3 Labs 12/09/22 22:00 12/11/22 08:21 Medications Medications Current Medications Acetaminophen (Acetaminophen 325 Mg Tablet) 650 mg PO Q6H PRN PRN Reason: Headache/Pain Mild Scale (1-3) Last Admin: 12/11/22 20:50 Dose: 650 mg Al Hydroxide/Mg Hydroxide (Magnesium Hydrox/Alum Hydrox 30 Ml Oral.Susp) 30 ml PO Q6H PRN PRN Reason: Heartburn/Nausea Escitalopram Oxalate (Escitalopram Oxalate 10 Mg Tablet) 10 mg PO DAILY YOLANDA Last Admin: 12/13/22 08:35 Dose: 10 mg Hydroxyzine HCl (Hydroxyzine Hcl 25 Mg Tablet) 25 mg PO Q6H PRN PRN Reason: Anxiety Lamotrigine (Lamotrigine 25 Mg Tablet) 25 mg PO BEDTIME YOLANDA Last Admin: 12/12/22 20:36 Dose: 25 mg Magnesium Hydroxide (Milk Of Magnesia 30 Ml Oral.Susp) 30 ml PO DAILY PRN PRN Reason: Constipation Trazodone HCl (Trazodone Hcl 50 Mg Tablet) 50 mg PO BEDTIME MRX1 PRN PRN Reason: Insomnia Last Admin: 12/10/22 22:39 Dose: 50 mg Allergies Allergies Allergy/AdvReac Type Severity Reaction Status Date / Time No Known Allergies Allergy Verified 08/18/22 10:33 Assessment & Plan Assessment & Plan (1) Suicidal ideation: Status: Acute Code(s): R45.851 - Suicidal ideations (2) Major depression: Status: Acute Code(s): F32.9 - Major depressive disorder, single episode, unspecified Plan 22 yo male, presents with reports of increasing depression and SI. Pt asked family for help in directing him for treatment which they were able to do. Reports no history of treatment, but history of symptoms for a few years. Denies addiction history. Family history positive for depression, anxiety and possible bipolar disorder. Differential of major depression vs bipolar II. No hx of overt eusebio however pt reports no history of any mood stability, just significant highs and lows. Plan: CV 15 minute checks Diagnostics appear intact EKG Lamictal 25 mg HS Lexapro 10 mg a.m. 12/12/22- Continue current regime 12/13: Continue current plan. Reason for continued inpatient stay Substantial Risk for: harm to self, inability to function and rapid decompensation Time Spent With Patient Time: Total time managing care of this patient today ____ minutes.
[2022-12-13 18:00] VITALS: BP 125/75; PULSE 74; TEMP 36.8; O2SAT 97
[2022-12-13] MEDS: lamoTRIgine 25 MG TABLET PO (20:23)
[2022-12-14 06:00] VITALS: BP 114/53; PULSE 72; RESP 16; TEMP 36.2; O2SAT 98
--- NOTE | 2022-12-14 08:08 | HO.PSYCHPN ---
Subjective Subjective Date of Service: 12/14/22 Reason For Visit: SI Interim History: Patient seen. He is doing well. He is pleased with medication effects thus far. Continues on Lexapro and Lamictal. Denies SI, HI. Feels on the right track Engaged in milieu. Hoping for DC this week. Review of Systems Review of Systems Constitutional : No Fever, No Chills Cardiovascular : No Chest Pain, No SOB Respiratory : No Cough, No Sputum, No Dyspnea Gastrointestinal : No Nausea, No Vomiting, No Diarrhea, No Hematochezia, No Melena Genitourinary : No Dysuria, No Urinary Frequency, No Hematuria Musculoskeletal : No Myalgias Skin : No Skin Lesions, No rash Neuro : No Weakness, No Numbness, No Paresthesias, No Dizziness, No Headache Psych : positive Anxiety, positive Depression, positive SI no HI All other systems reviewed and are negative Musculoskeletal: Reports back pain Reports behavioral changes Psychiatric: Reports anxiety, Reports behavioral changes, Reports depression, Reports hopelessness, Reports irritability, Reports anhedonia, Reports mood swings and Reports suicidal ideation Mental Status Exam Mental Status Exam Patient Appearance: Appropriate Patient Orientation: Person, Place, Time and Situation Level of Consciousness: Alert Patient Behavior: Appropriate, Talkative and Good Eye Contact Mood Description: Constricted and Depressed Affect Description: Constricted Patient Cognition Impaired: No Ability to Follow Directions: Good Speech Pattern: Spontaneous Speech Memory Description: Intact Diagnostics Vital Signs (24Hr): Vital Signs - 24 hr 12/13/22 09:38 12/13/22 18:00 Temperature 98.7 F 98.2 F Pulse Rate 72 74 Respiratory Rate 16 Blood Pressure 122/57 L 125/75 Pulse Oximetry 97 97 Oxygen Delivery Method Room Air Room Air BMI result Body Mass Index 30.3 Labs 12/09/22 22:00 12/11/22 08:21 Medications Medications Current Medications Acetaminophen (Acetaminophen 325 Mg Tablet) 650 mg PO Q6H PRN PRN Reason: Headache/Pain Mild Scale (1-3) Last Admin: 12/11/22 20:50 Dose: 650 mg Al Hydroxide/Mg Hydroxide (Magnesium Hydrox/Alum Hydrox 30 Ml Oral.Susp) 30 ml PO Q6H PRN PRN Reason: Heartburn/Nausea Escitalopram Oxalate (Escitalopram Oxalate 10 Mg Tablet) 10 mg PO DAILY YOLANDA Last Admin: 12/13/22 08:35 Dose: 10 mg Hydroxyzine HCl (Hydroxyzine Hcl 25 Mg Tablet) 25 mg PO Q6H PRN PRN Reason: Anxiety Lamotrigine (Lamotrigine 25 Mg Tablet) 25 mg PO BEDTIME YOLANDA Last Admin: 12/13/22 20:23 Dose: 25 mg Magnesium Hydroxide (Milk Of Magnesia 30 Ml Oral.Susp) 30 ml PO DAILY PRN PRN Reason: Constipation Trazodone HCl (Trazodone Hcl 50 Mg Tablet) 50 mg PO BEDTIME MRX1 PRN PRN Reason: Insomnia Last Admin: 12/10/22 22:39 Dose: 50 mg Allergies Allergies Allergy/AdvReac Type Severity Reaction Status Date / Time No Known Allergies Allergy Verified 08/18/22 10:33 Assessment & Plan Assessment & Plan (1) Suicidal ideation: Status: Acute Code(s): R45.851 - Suicidal ideations (2) Major depression: Status: Acute Code(s): F32.9 - Major depressive disorder, single episode, unspecified Plan 22 yo male, presents with reports of increasing depression and SI. Pt asked family for help in directing him for treatment which they were able to do. Reports no history of treatment, but history of symptoms for a few years. Denies addiction history. Family history positive for depression, anxiety and possible bipolar disorder. Differential of major depression vs bipolar II. No hx of overt eusebio however pt reports no history of any mood stability, just significant highs and lows. Plan: CV 15 minute checks Diagnostics appear intact EKG Lamictal 25 mg HS Lexapro 10 mg a.m. 12/12/22- Continue current regime 12/13: Continue current plan. 12/14: Continue current plan. Reason for continued inpatient stay Substantial Risk for: harm to self Time Spent With Patient Time: Total time managing care of this patient today ____ minutes.
[2022-12-14] MEDS: Escitalopram Oxalate 10 MG TABLET PO (08:27)
[2022-12-14] MEDS: Acetaminophen 325 MG TABLET 650 MG PO (12:12)
[2022-12-14 18:00] VITALS: BP 131/84; PULSE 80; TEMP 36.4; O2SAT 95
[2022-12-14] MEDS: lamoTRIgine 25 MG TABLET PO (19:27)
[2022-12-15 08:05] VITALS: BP 133/75; PULSE 79; RESP 18; TEMP 36.9; O2SAT 97
[2022-12-15] MEDS: Escitalopram Oxalate 10 MG TABLET PO (08:45)
--- NOTE | 2022-12-15 14:35 | HO.PSYCHPN ---
Subjective Subjective Date of Service: 12/15/22 Reason For Visit: SI Subjective Notes: Conditional Voluntary Healthcare Proxy: No Guardianship: No Medical Problems Affecting Mental Status: No Interim History: Pt seen, discussed with team Pleased with effects of regime, especially Lamictal Discussed discharge plans, will leave 12/16 Insurance issues reviewed with team and this typewriter repairer as well. Pt verbalized understanding and will call this typewriter repairer should there be complications. Medication Compliance: Yes Side effects from medications: No Attending Groups: Yes Review of Systems Acute medical concerns: No Medical Review of Systems: unchanged Mental Status Exam Mental Status Exam Patient Appearance: Appropriate Patient Orientation: Person, Place, Time and Situation Level of Consciousness: Alert Patient Behavior: Appropriate, Talkative and Good Eye Contact Mood Description: Appropriate Affect Description: Appropriate Patient Cognition Impaired: No Ability to Follow Directions: Good Speech Pattern: Clear and Appropriate Memory Description: Intact Hallucinations: None Delusions: Not Present Thought Process: Intact and Goal Oriented Thought Content: positive for Intact and positive for Goal Oriented Depressive Symptoms: Low Self Esteem Judgement: Good Diagnostics Vital Signs (24Hr): Vital Signs - 24 hr 12/14/22 18:00 12/15/22 08:05 Temperature 97.5 F 98.4 F Pulse Rate 80 79 Respiratory Rate 18 Blood Pressure 131/84 133/75 Pulse Oximetry 95 97 Oxygen Delivery Method Room Air Room Air BMI result Body Mass Index 30.3 Labs 12/09/22 22:00 12/11/22 08:21 Medications Medications Current Medications Acetaminophen (Acetaminophen 325 Mg Tablet) 650 mg PO Q6H PRN PRN Reason: Headache/Pain Mild Scale (1-3) Last Admin: 12/14/22 12:12 Dose: 650 mg Al Hydroxide/Mg Hydroxide (Magnesium Hydrox/Alum Hydrox 30 Ml Oral.Susp) 30 ml PO Q6H PRN PRN Reason: Heartburn/Nausea Escitalopram Oxalate (Escitalopram Oxalate 10 Mg Tablet) 10 mg PO DAILY [facility]S [facility]CLUDE [facility] BEDS AT [facility] Last Admin: 12/15/22 08:45 Dose: 10 mg Hydroxyzine HCl (Hydroxyzine Hcl 25 Mg Tablet) 25 mg PO Q6H PRN PRN Reason: Anxiety Lamotrigine (Lamotrigine 25 Mg Tablet) 25 mg PO BEDTIME YOLANDA Last Admin: 12/14/22 19:27 Dose: 25 mg Magnesium Hydroxide (Milk Of Magnesia 30 Ml Oral.Susp) 30 ml PO DAILY PRN PRN Reason: Constipation Trazodone HCl (Trazodone Hcl 50 Mg Tablet) 50 mg PO BEDTIME MRX1 PRN PRN Reason: Insomnia Last Admin: 12/10/22 22:39 Dose: 50 mg Allergies Allergies Allergy/AdvReac Type Severity Reaction Status Date / Time No Known Allergies Allergy Verified 08/18/22 10:33 Assessment & Plan Assessment & Plan (1) Suicidal ideation: Status: Acute Code(s): R45.851 - Suicidal ideations (2) Major depression: Status: Acute Code(s): F32.9 - Major depressive disorder, single episode, unspecified Plan 22 yo male, presents with reports of increasing depression and SI. Pt asked family for help in directing him for treatment which they were able to do. Reports no history of treatment, but history of symptoms for a few years. Denies addiction history. Family history positive for depression, anxiety and possible bipolar disorder. Differential of major depression vs bipolar II. No hx of overt eusebio however pt reports no history of any mood stability, just significant highs and lows. Plan: CV 15 minute checks Diagnostics appear intact EKG Lamictal 25 mg HS Lexapro 10 mg a.m. 12/12/22- Continue current regime 12/13: Continue current plan. 12/14: Continue current plan. 12/15/22: Discharge 12/16. Patient educated on: medication risk/benefits and therapeutic strategies Informed Consent: understands Reason for continued inpatient stay Substantial Risk for: stable for discharge Time Spent With Patient Time: Total time managing care of this patient today ____ minutes.
[2022-12-15] MEDS: Melatonin 3 MG TABLET 6 MG PO (19:39)
[2022-12-15] MEDS: lamoTRIgine 25 MG TABLET PO (19:39)
[2022-12-15 19:40] VITALS: BP 153/89; PULSE 98; RESP 16; TEMP 36.2
[2022-12-15 20:16] VITALS: BP 132/83; PULSE 78; RESP 16
[2022-12-16] MEDS: Escitalopram Oxalate 10 MG TABLET PO (08:24)
[2022-12-16 08:49] VITALS: BP 122/64; PULSE 71; RESP 16; TEMP 36.4; O2SAT 96
--- NOTE | 2022-12-16 12:19 | P.DS_ITS ---
DS: Providers Provider Date of Service: 12/16/22 Date of admission: 12/10/22 13:24 Date of discharge: 12/16/22 Primary care physician: Maria De Jesus Physician Admitting clinician: Constance Burger Attending physician on admission: Mekhi Diaz Attending physician on discharge: Mekhi Diaz Discharging clinician: Constance Burger DS: Diagnosis Discharge Diagnosis (1) Suicidal ideation: Status: Resolved (2) Major depression: Status: Acute DS: Medications Discharge Medications Home Medications: Previous Rx's Medication Instructions Recorded escitalopram oxalate 10 mg tablet 10 mg PO DAILY #30 tabs 12/16/22 lamotrigine 25 mg tablet 25 mg PO BEDTIME #30 tabs 12/16/22 melatonin 3 mg tablet 6 mg (2 x 3 mg) PO BEDTIME #60 tabs 12/16/22 trazodone 50 mg tablet 50 mg PO BEDTIME MRX1 PRN Insomnia 12/16/22 #30 tabs Mental Status Exam Mental Status Exam Patient Appearance: Appropriate Patient Orientation: Person, Place, Time and Situation Level of Consciousness: Alert Patient Behavior: Appropriate, Talkative and Good Eye Contact Mood Description: Appropriate Affect Description: Appropriate Patient Cognition Impaired: No Ability to Follow Directions: Good Speech Pattern: Clear and Appropriate Memory Description: Intact Hallucinations: None Delusions: Not Present Thought Process: Intact and Goal Oriented Thought Content: positive for Intact and positive for Goal Oriented Depressive Symptoms: Low Self Esteem Judgement: Good Data Data Completed and Pending Completed studies during hospitalization [Text1]: 12/09/22 12/09/22 12/09/22 22:00 22:01 22:02 WBC 11.5 H RBC 5.69 Hgb 16.4 Hct 47.5 MCV 83.5 MCH 28.8 MCHC 34.5 RDW 12.3 Plt Count 221 MPV 10.1 Immature Gran % (Auto) 0.3 Neut % (Auto) 69.1 Lymph % (Auto) 24.0 Mineral % (Auto) 5.5 Eos % (Auto) 0.7 Baso % (Auto) 0.4 Lymph # (Auto) 2.8 Mineral # (Auto) 0.6 Eos # (Auto) 0.1 Baso # (Auto) 0.1 Abs Immat Gran (auto) 0.03 Absolute Neuts (auto) 7.9 Absolute Nucleated RBC 0.000 Nucleated RBC % (auto) 0.0 Sodium 144 Potassium 4.0 Chloride 105 Carbon Dioxide 27 Anion Gap 16 BUN 12 Creatinine 0.99 Estim Creat Clear Calc 146.4 Estimated GFR > 60 Random Glucose 92 Fasting Glucose Estimat Average Glucose Hemoglobin A1c % Calcium 10.1 Magnesium 2.1 Total Bilirubin 1.1 H AST 27 ALT 38 Alkaline Phosphatase 81 Total Protein 7.4 Albumin 4.8 Triglycerides Cholesterol LDL Cholesterol, Calc HDL Cholesterol Vitamin B12 TSH Urine Color Yellow Urine Appearance Clear Urine pH 6.5 Ur Specific [place] 1.020 Urine Protein Negative Urine Glucose (UA) Negative Urine Ketones Negative Urine Blood Negative Urine Nitrite Negative Ur Leukocyte Esterase Negative Salicylates < 5.0 L Urine Opiates Screen Not Detected Urine Fentanyl Screen Not Detected Acetaminophen < 17 Ur Barbiturates Screen Not Detected Ur Phencyclidine Scrn Not Detected Ur Amphetamines Screen Not Detected U Benzodiazepines Scrn Not Detected Urine Cocaine Screen Not Detected U Marijuana (THC) Screen Not Detected Ethyl Alcohol < 10 COVID-19 ([facility]) Negative COVID-19 [email or web address] Com See Note 12/11/22 08:21 WBC RBC Hgb Hct MCV MCH MCHC RDW Plt Count MPV Immature Gran % (Auto) Neut % (Auto) Lymph % (Auto) Mineral % (Auto) Eos % (Auto) Baso % (Auto) Lymph # (Auto) Mineral # (Auto) Eos # (Auto) Baso # (Auto) Abs Immat Gran (auto) Absolute Neuts (auto) Absolute Nucleated RBC Nucleated RBC % (auto) Sodium 140 Potassium 3.8 Chloride 105 Carbon Dioxide 26 Anion Gap 13 BUN 13 Creatinine 0.87 Estim Creat Clear Calc 166.6 Estimated GFR > 60 Random Glucose Fasting Glucose 97 Estimat Average Glucose 94 Hemoglobin A1c % 4.9 Calcium 10.0 Magnesium Total Bilirubin 0.7 AST 23 ALT 33 Alkaline Phosphatase 76 Total Protein 7.1 Albumin 4.5 Triglycerides 87 Cholesterol 185 LDL Cholesterol, Calc 128 H HDL Cholesterol 40 L Vitamin B12 561 TSH 0.80 Urine Color Urine Appearance Urine pH Ur Specific [place] Urine Protein Urine Glucose (UA) Urine Ketones Urine Blood Urine Nitrite Ur Leukocyte Esterase Salicylates Urine Opiates Screen Urine Fentanyl Screen Acetaminophen Ur Barbiturates Screen Ur Phencyclidine Scrn Ur Amphetamines Screen U Benzodiazepines Scrn Urine Cocaine Screen U Marijuana (THC) Screen Ethyl Alcohol COVID-19 ([facility]) COVID-19 Clin Com DS: Summary Hospital Course Hospital Course: Admission to adult psychiatry for exacerbation of major depression with SI. This is Mills first intervention he reports. He described stressors as deaths in his family, relationship issues, and finances. On the unit, medication options were discussed and initiated. Full milieu treatment was offered to Jose Angel. Medications were tolerated, pt reported symptom relief and he was discharged to his home/family and will follow up with out patient care. Time spent discussing smoking cessation with patient: 3 to 10 minutes Status at Discharge Functional status at discharge: independent ambulation Overall status at discharge: patient is progressing back to baseline Time Spent with Patient Time attestation: Total time managing care of this patient today ____ minutes. Time spent: Greater than 30 minutes Discharge Plan Discharge Anticipated Discharge Date/Time: 12/16/22 12:44 Patient Disposition: Home, Self-Care Discharge Diagnosis: Recurrent Major Depression Referrals: [place] [facility] [employer] ([facility]): [facility] [Other] - 1 Week (Patient may self present to [facility] after insurance has been obtained for assistance in obtaining outpatient mental health (psychiatry/therapy) providers.) [facility] [Other] - 1 Week (Information for where to obtain your medications. [facility], pharmacy ) Physician,None [Primary Care Provider] - 1 Week Discharge Medications: New trazodone 50 mg Tablet 50 mg PO BEDTIME MRX1 PRN (Reason: Insomnia) Qty: 30 0RF melatonin 3 mg Tablet 6 mg PO BEDTIME Qty: 60 0RF lamotrigine 25 mg Tablet 25 mg PO BEDTIME Qty: 30 0RF escitalopram oxalate 10 mg Tablet 10 mg PO DAILY Qty: 30 0RF escitalopram oxalate [Lexapro] 10 mg tablet 10 mg PO DAILY Qty: 30 0RF lamotrigine [Lamictal] 25 mg tablet 25 mg PO DAILY 14 Days Qty: 14 1RF trazodone 50 mg tablet 50 mg PO BEDTIME Qty: 30 1RF Rx Instructions: 50 mg at bedtime. May repeat x 1 dose as needed for insomnia melatonin 3 mg capsule 6 mg PO BEDTIME PRN (Reason: sleep) Qty: 60 0RF Discharge Orders: Discharge Order (Routine); Ordered 12/16/22 Ordered By: Constance Burger Diet: Advance to usual diet Activity on Discharge: As tolerated Stand Alone Forms: Patient Portal Discharge page, Community Support Care Plan Goals: Mood and Behavioral Stabilization Health Concerns: Mood and Behavioral Stabilization Plan of Treatment: Attend scheduled appointments Take medications as directed Assessment: Pt interviewed prior to discharge and found to be fully oriented and without SI/HI. Pt has insight and demonstrates good judgment in terms of wanting to pursue treatment. Pt is not in imminent risk of harm to self or others and has a safety plan that includes presenting to the closest ER or calling 911 if feeling unsafe. Pt has been observed closely by nursing and unit staff throughout admission. Pt has not engaged in any behaviors that suggest dangerousness to self or others and has demonstrated appropriate behaviors and impulse control. Discharge Date/Time: 12/16/22 11:32
== END 2022-12-16 11:32 | disposition home or self-care (01) | DRG 885 ==
LOC: HO.ED 12-10 07:14 → HO.PM5 12-10 13:29
PROVIDERS: Physician Assistant; Admitting Provider Social Worker; Emergency Provider Emergency Medicine Emergency Medical Services; Visit Provider Clinical Nurse Specialist Psychiatric/Mental Health, Adult
DX: F33.9 Major depressive disorder, recurrent, unspecified (principal); R45.851 Suicidal ideations; M54.9 Dorsalgia, unspecified; G89.29 Other chronic pain; Z23 Encounter for immunization; Z20.822 Contact with and (suspected) exposure to COVID-19; Z79.899 Other long term (current) drug therapy
CPT/HCPCS: 36415; 80053; 80061; 80143; 80179; 80307; 81003; 82607; 83036; 83735; 84443; 85025; 87635; 90686; 93005; 99285; S9485

== ENCOUNTER → 2022-12-10 13:24 | Outpatient (BNV) | payer OTHER, SELFPAY | PROVIDERS: Admitting Provider Social Worker; Emergency Provider Emergency Medicine Emergency Medical Services; Visit Provider Clinical Nurse Specialist Psychiatric/Mental Health, Adult | DX: F33.2 Major depressive disorder, recurrent severe without psychotic features (principal); R45.851 Suicidal ideations | CPT/HCPCS: 90792; 99231; 99232; 99239 ==

== ENCOUNTER 2023-01-30 11:30 | Outpatient (REF) | payer OTHER, SELFPAY ==
[2023-02-02 16:49] LABS: TS Negative Control Passed; TS Panel A 0; TS Panel B 0; TS Positive Control Passed; TSpotTB Negative (Negative)
== END 2023-01-30 11:31 | disposition home or self-care (01) ==
LOC: HO.LAB 11:30
PROVIDERS: Visit Provider Physician Assistant Medical
DX: L40.0 Psoriasis vulgaris (principal); Z79.899 Other long term (current) drug therapy
CPT/HCPCS: 36415; 86481

== ENCOUNTER 2023-09-24 15:39 | Emergency (ER) | payer SELFPAY ==
--- NOTE | ~2023-09-24 | XR_ITS ---
EXAMINATION: XR FINGER, LEFT CLINICAL INFORMATION: Jammed thumb. COMPARISON: None available. TECHNIQUE: 3 radiographs of the left first digit. FINDINGS: There is no fracture or dislocation. Joint spaces are maintained. Regional soft tissue is normal in appearance. XR/XR finger LT min 2V IMPRESSION: No fracture or dislocation.
[2023-09-24 15:40] VITALS: BP 136/73; PULSE 79; RESP 18; TEMP 37.1; O2SAT 96; BMI 30.7
--- NOTE | 2023-09-24 15:42 | ED.UPPEXIN ---
HPI - Extremity Injury (Upper) General Chief Complaint: Extremity Injury, Upper Stated Complaint: left hand pain Time Seen by Provider: 09/24/23 16:05 Source: patient Mode of arrival: ambulatory Limitations: no limitations History of Present Illness ED Provider: VALERIE HILLIARD PA-C HPI narrative: 23-year-old left-handed male with no significant pmhx presents to the ED today for evaluation of left thumb pain sustained [place] [employer] [place]. Reports accidentally slamming his left hand into a wall. Admits to immediate pain to his left thumb along with bruising which has since resolved. Over the past week there has been no improvement in his thumb pain. Pain is localized to the tip of his left thumb and the base of the thumb. States he is able to move the thumb completely however there some discomfort with flexion. Denies numbness, weakness, tingling. Related Data Previous Rx's ?Medication ?Instructions ?Recorded escitalopram oxalate 10 mg tablet 10 mg PO DAILY #30 tabs 12/16/22 lamotrigine 25 mg tablet 25 mg PO BEDTIME #30 tabs 12/16/22 melatonin 3 mg tablet 6 mg (2 x 3 mg) PO BEDTIME #60 tabs 12/16/22 trazodone 50 mg tablet 50 mg PO BEDTIME MRX1 PRN Insomnia 12/16/22 #30 tabs escitalopram oxalate 10 mg tablet 10 mg PO DAILY #30 tabs 01/21/23 (Lexapro) lamotrigine 25 mg tablet (Lamictal) 25 mg PO DAILY 14 days #14 tabs 01/21/23 melatonin 3 mg capsule 6 mg (2 x 3 mg) PO BEDTIME PRN 01/21/23 sleep #60 caps trazodone 50 mg tablet 50 mg PO BEDTIME #30 tabs 01/21/23 prednisone 20 mg tablet 20 mg PO DAILY 5 days #5 tabs 09/24/23 Allergies Allergy/AdvReac Type Severity Reaction Status Date / Time No Known Allergies Allergy Verified 09/24/23 15:44 Review of Systems Review of Systems: Constitutional: No fever, chills, fatigue, night sweats, weight changes ENT/Mouth: No ear pain, hearing loss, nasal congestion, sinus pain, rhinorrhea, sore throat Eyes: No eye pain, swelling, redness, vision changes, discharge Cardio: No chest pain, palpitations, LUNA, orthopnea, peripheral edema Pulm: No SOB, cough, sputum, wheezing, dyspnea, hemoptysis GI: No nausea, vomiting, hematemesis, abdominal pain, diarrhea, constipation, hematochezia, melena : No irregular bleeding, dysuria, frequency, urgency, hesitancy, hematuria, flank pain, urinary flow changes, urinary incontinence or retention MSK: No back pain, neck pain, joint pain, myalgias, + left thumb pain Skin: No lesions, rashes Neuro: No weakness, numbness, paresthesias, LOC, dizziness, headache Psych: No anxiety/panic, depression, SI/HI, AH/VH All other systems reviewed and are negative. [facility] Past Medical History Attestation statement: The following information was validated with the patient. Source: old records reviewed and nursing notes reviewed Medical History Major depression No pertinent past medical history Social History Social History Household Members: Other Household Members Other:: Mother Housing: Apartment Do you presently have visiting nurse or other home services: No Patient Tobacco Use Status: Never used Tobacco e-Cigarette/Vaping Use: Never Used Second Hand Smoke Exposure: No Substance Use Type: Marijuana service: No Sexual orientation: Straight/Heterosexual Physical Exam Vital Signs: Vital Signs: Last Vital Signs Temp 98.8 F 09/24/23 15:40 Pulse 79 09/24/23 15:40 Resp 18 09/24/23 15:40 BP 136/73 09/24/23 15:40 Pulse Ox 96 09/24/23 15:40 O2 Del Method Room Air 09/24/23 15:40 BMI result Body Mass Index 30.7 Vital signs stable Const: General: cooperative, healthy appearing, comfortable, no acute distress, alert, awake and Physically active Orientation/consciousness: patient oriented x3 Limitations: no limitations HEENT: Head: Yes normal to inspection, Yes No palpable skull fracture present, Yes normocephalic and Yes atraumatic Eyes: General: appearance normal, both eyes and all related structures Conjunctivae: conjunctivae normal Sclerae: sclerae normal Pupils: Equal, round and reactive pupils present Neck: Neck: Yes normal visual inspection and Yes full ROM Resp: Effort & Inspection: normal respiratory effort Auscultation: clear to auscultation bilaterally Cardio: Rate: regular rate Rhythm: regular rhythm Back/Spine/Pelvis: Other: No midline spinous tenderness or step off deformity. No paraspinal muscle tenderness. Skin: General skin exam: no rashes or lesions noted Neuro: General: patient oriented x3 Cranial nerves: Yes Equal, round and reactive pupils present Extrem: Other: + left 1st digit without overlying skin changes, deformity or edema. Full ROM intact to MCP, DIP and PIP. Some pain elicited on extension of the 1st digit. There is positive snuffbox tenderness without palpable deformity. Full ROM intact to wrist. Cap refill less than 2 seconds. Finger to thumb opposition intact. Cotton Ball Machine Tender strength intact. 2+ radial/ulnar pulse intact. Course Course Course Narrative: This is a Rapid Medical Examination (RME) performed by Inocencia Hilliard PA-C in triage. Full HPI, ROS, assessment and treatment plan per primary provider in the Main ED. 23 yo male here for eval of L thumb pain s/p slamming his hand into a wall at a [employer] [place] 1 wk ago. + left snuffbox tenderness. from intact to L thumb w/ pain on extension. no obvious deformity. Plan: xr ordered Reevaluation(s) Reevaluation #1: 1610-- X-ray left thumb unremarkable. No acute fracture. Given snuffbox tenderness, thumb spica splint placed. Advised to take Tylenol and ibuprofen as needed for pain. Short course of prednisone sent to pharmacy. Will have patient follow-up with orthopedic team. He is agreeable to this. Patient has remained stable throughout ED visit today. Discussed worrisome signs and symptoms and when to return to the ED. All questions answered at this time. Patient is agreeable with disposition and stable for discharge. Medical Decision Making Medical Decision Making MDM Narrative: 23-year-old male with no significant past medical history presents to the ED today for evaluation of left thumb pain sustained while at a [employer] [place] 1 week ago. Vital signs stable. He is nontoxic-appearing and in no acute distress. On exam, left 1st digit without overlying skin changes, deformity or edema. Full ROM intact to MCP, DIP and PIP. Some pain elicited on extension of the 1st digit. There is positive snuffbox tenderness without palpable deformity. Full ROM intact to wrist. Cap refill less than 2 seconds. Finger to thumb opposition intact. Cotton Ball Machine Tender strength intact. 2+ radial/ulnar pulse intact. Differential diagnosis includes fracture, dislocation, ligament/tendon injury, contusion. Unlikely NV compromise, threat to limb, compartment syndrome, gout, pseudogout. Plan for imaging and re-evaluation. Differential Diagnosis Differential Diagnoses: The differential diagnosis associated with the presentation includes As above Admission/Observation Not indicated Independent Interpretation I performed an independent interpretation of an: Plain X-Ray Interpretation: X-ray left thumb without acute fracture, agree with radiologist's interpretation. Radiology Impression Discussion of test interpretation with radiology: I have reviewed the radiologist's reading. Radiologist Impression: EXAMINATION: XR FINGER, LEFT CLINICAL INFORMATION: Jammed thumb. COMPARISON: None available. TECHNIQUE: 3 radiographs of the left first digit. FINDINGS: There is no fracture or dislocation. Joint spaces are maintained. Regional soft tissue is normal in appearance. XR/XR finger LT min 2V IMPRESSION: No fracture or dislocation. External Record Review External record reviewed: Inpatient record, Office record, Outpatient record, Prior outpatient labs, Prior outpatient radiology, Primary care record and Outside ED record Prescription Management I considered prescription management with: Pain Medication (Naproxen) and Other (Prednisone) Social Determinants Patient?s care significantly limited by Social Determinants of Health including: Other Social Determinant of Health Procedures Orthopedic Splinting/Casting Injury #1: Side: left Upper Extremity Injury Location: finger (thumb) Upper Extremity Immobilizer: thumb spica Critical Care Time Critical Care Time Critical Care Time: No Discharge Plan Discharge Clinical Impression: Left thumb sprain Qualifiers: Encounter type: initial encounter Patient Disposition: Home, Self-Care Instructions: Jammed Finger (ED), Finger Sprain (ED) Additional Instructions: You were seen in the ED today for finger pain. Your xrays do not demonstrate fracture. You were provided with a thumb spica splint. Please wear this until follow up with orthopedic team. Take Tylenol and/or Ibuprofen as needed for pain. Prednisone has been sent to your pharmacy for you to take over the next 5 days. Rest and ice the finger as this can help with swelling and pain. Prednisone is a steroid that has been sent to your pharmacy for you to take over the next 5 days. Return with new or worsening symptoms. In the case of an emergency call 911. Prescriptions: New prednisone 20 mg tablet 20 mg PO DAILY 5 Days Qty: 5 0RF No Action trazodone 50 mg Tablet 50 mg PO BEDTIME MRX1 PRN (Reason: Insomnia) Qty: 30 0RF melatonin 3 mg Tablet 6 mg PO BEDTIME Qty: 60 0RF lamotrigine 25 mg Tablet 25 mg PO BEDTIME Qty: 30 0RF escitalopram oxalate 10 mg Tablet 10 mg PO DAILY Qty: 30 0RF escitalopram oxalate [Lexapro] 10 mg tablet 10 mg PO DAILY Qty: 30 0RF lamotrigine [Lamictal] 25 mg tablet 25 mg PO DAILY 14 Days Qty: 14 1RF trazodone 50 mg tablet 50 mg PO BEDTIME Qty: 30 1RF Rx Instructions: 50 mg at bedtime. May repeat x 1 dose as needed for insomnia melatonin 3 mg capsule 6 mg PO BEDTIME PRN (Reason: sleep) Qty: 60 0RF Referrals: Merlene Culver MD [Physician] - Stand Alone Forms: Work/School Release Print Language: Welsh
[2023-09-24 16:18] VITALS: BP 136/73; PULSE 79; RESP 18; TEMP 37.1; O2SAT 96
== END 2023-09-24 16:20 | disposition home or self-care (01) ==
PROVIDERS: Emergency Provider Student in an Organized Health Care Education/Training Program
DX: S63.602A Unspecified sprain of left thumb, initial encounter (principal); X50.1XXA Overexertion from prolonged static or awkward postures, initial encounter; Y93.44 Activity, trampolining; Y92.39 Other specified sports and athletic area as the place of occurrence of the external cause; Y99.9 Unspecified external cause status
CPT/HCPCS: 29130; 73140; 99282; 99283

== ENCOUNTER 2023-10-07 08:14 | Outpatient (REF) | payer SELFPAY | END 2023-10-07 08:15 | disposition home or self-care (01) | LOC: HO.HOSX 08:14 | DX: Z13.89 Encounter for screening for other disorder (principal) ==

== ENCOUNTER 2024-09-22 12:51 | Outpatient (REF) | payer BC, SELFPAY ==
--- OUTSIDE RECORDS SUMMARY | 2024-09-22 13:03 | XMS_ITS | Encounter Summary ---
Author Organization [facility] Address [address] [place] [phone] Phone Care Team Providers Care Lpn Rn Hospice Name Role Phone Brandie Chaudhari MD Primary Care Provider Encounter Details Date Type Department Care Team (Late st Contact Info) Description 10/10/2015 Documentation [facility] [place] Family Medicine [address] [place] [address] Family Medicine, Physician [address], [place] [id number] Social History Tobacco Use Types Packs/Day Years Used Date Smoking Tobacco: Never Assessed Sex and Gender Information Value Date Recorded Sex Assigned at Not on file Legal Sex Male 5:18 PM EDT Gender Identity Male 03/25/2020 5:54 PM EST Sexual Orientation Not on file documented as of this encounter Plan of Treatment Not on file documented as of this encounter Visit Diagnoses Not on filedocumented in this encounter Care Teams Lpn Rn Hospice Relationship Specialty Start Date End Date Brandie Chaudhari MD [address] [place] [address] [place] [address] PCP - General Pediatrics 07/29/17 04/09/22 documented as of this encounter
[2024-09-27 16:23] LABS: Quantiferon TB Gold Plus 1 NEGATIVE (NEGATIVE); TB Test (QFT) Mitogen -Nil >10.00 IU/mL; TB Test (QFT) Nil 0.03 IU/mL; TB Test (QFT) Plus TB1 -Nil 0.01 IU/mL; TB Test (QFT) Plus TB2 -Nil 0.01 IU/mL
== END 2024-09-22 12:52 | disposition home or self-care (01) ==
LOC: HO.LAB 12:51
PROVIDERS: Visit Provider Physician Assistant Medical
DX: Z11.1 Encounter for screening for respiratory tuberculosis (principal); L40.0 Psoriasis vulgaris; Z79.899 Other long term (current) drug therapy
CPT/HCPCS: 36415; 86480